=== PATIENT | male | born 2000 | race Caucasian/White ===

== ENCOUNTER 2023-12-31 17:40 | Emergency (ER) | payer OTHER ==
[2023-12-31 17:48] VITALS: BP 139/84; PULSE 71; RESP 20; TEMP 98.2; BMI 34.4
[2023-12-31] MEDS ORDERED: DIPHTH,PERTUSS(ACELL),TET 0.5 ML DISP.SYRIN IM ONE (18:56)
[2023-12-31] MEDS: DIPHTH,PERTUSS(ACELL),TET 0.5 ML DISP.SYRIN IM ONE (19:00)
== END 2023-12-31 19:13 | disposition home or self-care (01) ==
LOC: JERFT 17:40
PROC: 0HQ1XZZ Repair Face Skin, External Approach (ICD-10-PCS; principal; 2023-12-31)
PROC: 3E0234Z Introduction of Serum, Toxoid and Vaccine into Muscle, Percutaneous Approach (ICD-10-PCS; 2023-12-31)
DX: S01.81XA Laceration without foreign body of other part of head, initial encounter (principal); W22.8XXA Striking against or struck by other objects, initial encounter; Y99.0 Civilian activity done for income or pay; Z23 Encounter for immunization
CPT/HCPCS: 90715; 99284-25

== ENCOUNTER 2024-01-05 16:05 | Emergency (ER) | payer OTHER ==
[2024-01-05 16:09] VITALS: BP 125/64; PULSE 68; RESP 18; TEMP 98.1; BMI 36.1
== END 2024-01-05 17:08 | disposition home or self-care (01) ==
LOC: JERFT 16:05
DX: Z48.02 Encounter for removal of sutures (principal)
CPT/HCPCS: 99281-25